=== PATIENT | male | born 1965 | race Caucasian/White ===

== ENCOUNTER 2019-04-01 05:50 | Day surgery (SDC) | payer OTHER ==
[2019-03-31 09:24] LABS: HEMATOCRIT 46.7 % (42.0-54.0); HEMOGLOBIN 16.9 g/dL (13.5-17.5); MCH 32.5 pg (26.0-34.0); MCHC 36.2 g/dL (31.0-37.0); MCV 89.8 fL (80.0-100.0); MEAN PLATELET VOLUME 9.1 fL (7.4-10.4); RBC 5.2 10x6/uL (4.20-6.10); RDW 12.8 % (11.5-14.5); WBC 8.8 10x3/uL (4.8-10.8)
[2019-03-31 09:30] LABS: ANION GAP 14.8 mmol/L (8-16); CALCIUM 9.4 mg/dL (8.5-10.1); CREATININE - SERUM 1.6 mg/dL (0.6-1.3); POTASSIUM - SERUM 4.8 mmol/L (3.5-5.1)
[~2019-04-01] VITALS: Ht 185.4 cm; Wt 98.0 kg
[~2019-04-01 05:50] MED LIST: LIPITOR10 MG PO; LISINOPRIL-HCT1 EAC7; [UNRECOGNIZED DRUG - OTHER]
[2019-04-01] MEDS ORDERED: SULFAMETHOXAZOL1 TA2 PO (06:26)
[2019-04-01] MEDS ORDERED: SYMBICORT 80-10.2 GM INH (06:27)
[2019-04-01 06:33] VITALS: Ht 185.4 cm; Wt 98.0 kg
--- NOTE | 2019-04-01 10:18 | NUR ---
0916-REC'D FROM SURGERY,AWAKE AND ALERT.DENIES COMPLAAINTS. IV PATENT AT [employer] [employer] [facility] IN [place].
--- NOTE | 2019-04-01 10:19 | NUR ---
1015-DISCHARGE CRITERIA MET. IV REMOVED WITH CATH INTACT,DISPOSED INTO SHARPS CONTAINER.COVERED SITE WITH BANDAID. REVIEWED DISCHARGE INSTRUCTIONS WITH PT,VERBALIZED UNDERSTANDING WITHOUT QUESTIONS OR CONCERNS. ESCORTED OUT VIA W/C BY VOLUNTEER WITH MOTHER DRIVING HOME.
--- NOTE | 2019-04-01 12:38 | OP ---
PATIENT NAME: MANNIE COYNE MEDICAL RECORD: [id number] :65 LOCATION:.[facility] ADMISSION DATE: SURGEON: MANNIE JEFFERS MD DATE OF OPERATION: 04/01/2019 SURGEON: Mannie Jeffers MD ANESTHESIA: TIVA by Bethany Baker CRNA DIAGNOSES: Elevated PSA of 5.25, bladder outlet obstruction. PROCEDURE: Cystoscopy, transrectal ultrasound, and prostate biopsy. FINDINGS: On transrectal ultrasound, 30-gram prostate. Cystoscopy shows bilateral lateral lobe hyperplasia with no median lobe. Single ureteral orifices bilaterally with no bladder tumors. SPECIMENS: Prostate biopsy cores. BLOOD LOSS: Minimal. CLINICAL HISTORY: This is a 53-year-old male, who was referred with a PSA of 5.25 with 10% free PSA. This test was obtained on 01/15/2019. He has a family history of prostate cancer with a maternal uncle having prostate cancer. The patient has some voiding symptoms including nocturia times 2 and a reduction in urinary flow. He comes today to have cystoscopy, transrectal ultrasound and prostate biopsy. He is not allergic to any medications. 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 DESCRIPTION OF PROCEDURE: The patient was given IV sedation. He was then placed into lithotomy position. He was prepped and draped. A 17-Spanish cystoscope was used for visualization. Findings are as outlined above. The bladder was then emptied through the cystoscope sheath and then the scope was removed. The transrectal ultrasound probe was introduced and prostate size measurements were obtained. We obtained a size of 30 grams. Sextant biopsies were then obtained with at least 3 cores from each sextant. Once all the specimens were obtained, the procedure was terminated. I will see the patient in followup next week to review the pathology results with him. TRANSINT:[id number] Voice Confirmation ID: [id number] DOCUMENT ID: [id number] MANNIE JEFFERS MD at 1238 CC: [id number] DICTATION DATE: 04/01/19907 [employer] LAB[employer]ER: 04/01/19 1149 [facility] 04/01/19 [place] [address]
== END 2019-04-01 10:15 | disposition home or self-care (01) ==
LOC: D.OPS 05:50 → D.PAN 13:35 → D.OPS 14:05 → D.PAN 15:00
PROVIDERS: Anesthesiology; ATTEND Urology
DX: N32.0 Bladder-neck obstruction (principal); R97.20 Elevated prostate specific antigen [PSA]; Z01.812 Encounter for preprocedural laboratory examination